=== PATIENT | female | born 1980 | race American Indian/Alaskan Native ===

== ENCOUNTER 2020-02-02 16:19 | Emergency (ER) | payer MEDICAID ==
[2020-02-02 16:44] VITALS: BP 130/85
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
[2020-02-02] MEDS ORDERED: ONDANSETRON 4 MG ODT TAB PO ONE (19:20)
[2020-02-02] MEDS ORDERED: ONDANSETRON 4 MG ODT TAB ONE (19:22)
[2020-02-02] MEDS ORDERED: IBUPROFEN 600 MG TAB PO ONE (19:38)
[2020-02-02] MEDS ORDERED: ACETAMINOPHEN 500 MG TAB PO ONE (19:38)
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
== END 2020-02-02 21:12 | disposition home or self-care (01) ==
LOC: ED 16:19
DX: G44.319 Acute post-traumatic headache, not intractable (principal); M62.838 Other muscle spasm; Z79.1 Long term (current) use of non-steroidal anti-inflammatories (NSAID); Z79.899 Other long term (current) drug therapy; V49.59XA Passenger injured in collision with other motor vehicles in traffic accident, initial encounter; Y93.89 Activity, other specified; Y92.410 Unspecified street and highway as the place of occurrence of the external cause; Y99.8 Other external cause status
CPT/HCPCS: 70450; 72040; 72125; Q0162